=== PATIENT | female | born 1935 | race Caucasian/White ===

== ENCOUNTER 2019-05-13 18:43 | Inpatient (IN) ==
[2019-05-13 19:48] LABS: BASO# 0.04 X1000 (0.0-0.2); BASO% 0.5 % (0.0-0.8); EOS# 0.26 X1000 (0.0-0.7); EOS% 3.1 % (0.0-10.0); HEMATOCRIT 46.6 % (37.0-47.0); HEMOGLOBIN 15.1 g/dL (12.0-16.0); LYMPH# 2.33 X1000 (1.2-3.4); MCH 29.8 PG (27-31); MCHC 32.4 g/dL (33-37); MCV 91.9 FL (81-99); MONO# 1.11 X1000 (0.11-0.59); MONO% 13.3 % (1.7-9.3); MPV 11.6 FL (7.4-10.4); NEUT# 4.59 X1000 (1.4-6.5); NEUT% 55.1 % (42.2-75.2); PLT 221 X1000 (130-400); RBC 5.07 XMIL (4.2-5.4); RDW 14.5 % (11.5-14.5); WBC 8.33 X1000 (4.8-10.8)
--- NOTE | 2019-05-13 19:59 | Diag Imaging Result Doc PS360 ---
EXAM: CHEST-PORTABLE HISTORY: dyspnea TECHNIQUE: Single view COMPARISON: 04/12/2015 FINDINGS: There is a large hiatal hernia. The heart is mildly enlarged. Mild vascular distention. There are scattered granuloma. No pleural effusions identified. IMPRESSION: 1.Mild cardiomegaly with mild pulmonary edema 2.Large hiatal hernia Electronically signed by Roderick Trejo 05/13/2019 7:57 PM
[2019-05-13 20:09] LABS: URINE SOURCE CLEAN CATCH
[2019-05-13 20:15] LABS: AGAP 16; BUN 16 mg/dL (8-22); CALCIUM 9.7 mg/dL (8.8-10.2); CHLORIDE 101 mmol/L (98-107); COSMO 287; CREATININE 0.6 mg/dL (0.5-0.9); ESTIMATED GFR > 60; GLUCOSE 108 mg/dL (70-104); POTASSIUM 4.6 mmol/L (3.5-5.1); SODIUM 143 mmol/L (136-145); TCO2 26 mmol/L (25-35)
[2019-05-13 20:23] LABS: BILIRUBIN URINE NEGATIVE (NEGATIVE); BLOOD URINE NEGATIVE (NEGATIVE); COLOR YELLOW; GLUCOSE URINE NEGATIVE (NEGATIVE); KETONE URINE NEGATIVE (NEGATIVE); LEUKOCYTES URINE NEGATIVE (NEGATIVE); NITRITE URINE NEGATIVE (NEGATIVE); PROTEIN URINE NEGATIVE (NEGATIVE); SP GRAVITY URINE 1.015; TURBIDITY URINE CLEAR (CLEAR); UROBILINOGEN URINE 2 mg/dL (NORMAL)
[2019-05-13 20:24] LABS: UR EPITHELIAL CELLS <10 /HPF (<10); URINE BACTERIA NEGATIVE /HPF; URINE RBC <10 /HPF (<10); URINE WBC <10 /HPF (<10)
[2019-05-13] MEDS ORDERED: LASIX IV ONE (20:44)
--- NOTE | 2019-05-13 20:52 | EKG Report ---
Test Performed on : 05/13/2019 7:32:48 PM Test Reason : HIGH BP Blood Pressure : / mmHG Vent. Rate : 110 BPM Atrial Rate : 110 BPM P-R Int : 162 ms QRS Dur : 090 ms QT Int : 340 ms P-R-T Axes : 011 -48 064 degrees QTc Int : 460 ms Sinus tachycardia. with premature atrial complexes. Left axis deviation Anterior infarct , age undetermined Abnormal ECG When compared with ECG of 12-APR-2015 10:17, premature atrial complexes. are now present Anterior infarct is now present Unconfirmed Result
[2019-05-13] MEDS ORDERED: ZOFRAN IV PRN (23:16)
[2019-05-14] MEDS: LOVENOX SUBQ SCH ×2 (00:03→21:26)
[2019-05-14] MEDS: DUONEB (A & A) INH SCH ×4 (03:29→23:05)
--- NOTE | 2019-05-14 04:33 | HISTORY AND PHYSICAL ---
REASON FOR ADMISSION: Two months history of worsening shortness of breath. HISTORY OF PRESENT ILLNESS: Ms. Srivastava is an 84-year-old woman with past medical history of hypertension, hyperlipidemia, who comes in complaining of a 2 month history of progressive worsening shortness of breath. Six months ago, patient could walk from a house to her mailbox and back to her house before getting short of breath and it took her about less than a minute to overcome the shortness of breath. Over the last 2 months, she says she has been unable to make it to her mailbox and has to send people to get her mail. She stated that she came in today primarily because over the last 1 month she has been having increasing PND and orthopnea. She admits to having an occasional dry cough but no fever, no chills. She denies any leg swelling. She admits to having transient precordial chest pain lasting a few seconds. It is sharp and there are no specific aggravating or relieving factors. She also denies any upper respiratory symptoms. She denies any easy satiety or abdominal distention. No blood loss from any orifice. No change in her medications recently. REVIEW OF SYSTEMS: Only notable for occasional constipation. Otherwise, 12 system review was done and positive findings as per HPI. ALLERGIES TO: Aspirin, codeine, and Phenergan. MEDICATIONS: Takes amlodipine 2.5 mg daily, Celexa 10 mg daily, potassium chloride 10 mg daily, simvastatin 20 mg daily, Micardis 80 mg daily, Zanaflex 4 mg b.i.d. SURGICAL HISTORY: Includes kidney stone extraction, cataracts, joint replacement, hysterectomy, cholecystectomy. SOCIAL HISTORY: Lives alone. Does not smoke, drink, or use elicit drugs. FAMILY HISTORY: Positive for heart disease, but no diabetes in first-degree relatives. LABORATORY WORK: White count 8000. Hemoglobin and hematocrit 15 and 46, platelets 221,000 with no left shift. BUN is 16, creatinine 0.6. ProBNP is 355. Troponin is negative. Urinalysis is essentially benign. Chest film showed increased vascular markings, cardiomegaly and possible right lower lobe area of consolidation. EKG not available for review at this time. PHYSICAL EXAMINATION: VITAL SIGNS: Blood pressure is 125/80, heart rate 108, respiratory rate was 33, but now it is down to 20, temperature is 97.8. She is 92% O2 saturation on room air. GENERAL: She is an overweight elderly woman, not in acute distress. She is alert and oriented to person time normal mood and affect. HEAD: Is normocephalic, atraumatic. EYES: YANY. EOMI intact. Not pale. ENT EXAM: Shows moist oral mucosa. No oropharyngeal exudate. No cyanosis. NECK: Supple. Surprisingly, no JVD or hepatojugular reflux. No bruit or thyromegaly noted. CHEST: A few bibasilar crepitations with decreased entry in the right lower base. CARDIOVASCULAR: First and 2nd heart sounds heard. No gallops, rubs, regular. ABDOMEN: Protuberant, soft, nontender. No megaly. Bowel sounds hypoactive. RECTAL: Deferred at this time. EXTREMITIES: No edema, clubbing or peripheral cyanosis. Good distal pulse volumes which are regular and symmetrical. NEUROLOGIC: No gross focal deficits. SKIN: Intact. No breakdown, lesion or erythema. MUSCULOSKELETAL: Exam is grossly normal. ASSESSMENT: 1. Progressive dyspnea. Could be congestive heart failure and another pathology. 2. Hypertensive heart disease. 3. Hyperlipidemia. PLAN: Due to the fact that the patient has a mixed picture of congestive heart failure and another possible underlying cardiorespiratory pathology, I will order a CT scan of the thorax with contrast to rule out any coexisting pathology. It is also possible that the patient may have chronic aspiration causing a subclinical chronic aspiration pneumonitis based on her large hiatal hernia noted. We will treat patient with bronchodilators and diuretics and order an echo in the morning. Conservative blood pressure management will be instituted to avoid hypertension. Please follow-up chest CT thorax. cc: Greg Montanez MD
--- NOTE | 2019-05-14 06:52 | PROVIDER DOCUMENTATION ---
This chart was entered by Dominick Arce Scribe, acting as scribe for Olaf Guzman MD. HPI-General Adult - General Chief Complaint: B/P Problems Stated Complaint: HIGH BP Time Seen by Provider: 05/13/19 19:05 Source: patient Allergies/Adverse Reactions: Patient Allergies Allergy/AdvReac Type Severity Reaction Status Date / Time aspirin AdvReac Mild ABDOMINAL Verified 04/12/15 11:08 PAIN codeine [Codeine] AdvReac Mild ITCHING Verified 04/12/15 11:08 promethazine HCl * AdvReac Mild NAUSEA/VOMI Verified 04/12/15 11:08 [From Phenergan] TING Home Medications: Home Medication List Medication Instructions Recorded Confirmed Last Taken Type Potassium Chloride 10 meq PO DAILY 12/13/12 05/13/19 02/12/15 08:00 History Simvastatin 20 mg PO DAILY 12/13/12 05/13/19 02/12/15 20:00 History Tizanidine [Zanaflex] 4 mg PO BID 12/13/12 05/13/19 02/12/15 20:00 History Amlodipine Besylate 2.5 mg PO DAILY 05/13/19 05/13/19 Unknown History Citalopram Hydrobromide 10 mg PO DAILY 05/13/19 05/13/19 Unknown History [Citalopram HBr] Telmisartan 80 mg PO DAILY 05/13/19 05/13/19 Unknown History - History of Present Illness -Gen Adult Nature of Presenting Problems: Pt is a 84 y/o F presents to the ED stating her BP is high. She reports weakness, dizziness and SOB that has been happening for over a month. She says she seen her PCP Dr Bangura last week for the same things and he adjusted her BP meds. She reports she cant lay down flat and has pain between her shoulder blades. Location of Pain/Injury: reports: none Pain Radiation: reports: no radiation Severity: reports: moderate Onset/Duration: reports: gradual Timing: reports: getting worse Context/Activities at Onset: reports: none Associated Symptoms: reports: back/neck pain, dizziness, shortness of breath, weakness. denies: fever/chills, trouble walking Similar Symptoms Previously?: Yes Recently seen or treated by another doctor?: Yes (Dr Bangura 1 week ago) Review of Systems - Adult - REVIEW OF SYSTEMS - ADULT Constitutional: denies: chills, fever Eyes: reports: no symptoms reported Ears, Nose, Mouth & Throat: denies: throat pain Cardiovascular: denies: chest pain, edema, palpitations Respiratory: reports: shortness of breath. denies: cough, pleurisy, wheezing Gastrointestinal: denies: abdominal pain, nausea, vomiting Genitourinary: denies: dysuria, flank pain Musculoskeletal: reports: back pain. denies: neck pain Integumentary: reports: no symptoms reported Neurological: reports: dizziness/vertigo, other (weakness). denies: headache/migraines, seizure, slurred speech, syncope Psychiatric: denies: anxiety, anti-depressant use Endocrine: reports: no symptoms reported Hematologic/Lymphatic: reports: no symptoms reported Allergic/Immunologic: reports: no symptoms reported All Other Systems: Reviewed and Negative Past History - Adult - PAST MEDICAL HISTORY-ADULT Review of Records: reports: Old Records Reviewed, Nursing Assessment Review, Medications Reviewed Major Childhood Illnesses: reports: denies history Cardiovascular: reports: HTN, hyperlipidemia Gastrointestinal: reports: GERD (hiatal hernia), pancreatitis Genitourinary: reports: kidney stones Musculoskeletal: reports: arthritis Other Conditions: reports: cataract/glaucoma - PRIOR SURGERIES/PROCEDURES Surgical/Procedure History: reports: cholecystectomy, hysterectomy, joint replacement, other (cataract) - IMMUNIZATION STATUS Childhood Immunizations: See Nurse Assessment Flu Vaccine: See Nurse Assessment - SOCIAL HISTORY Smoking: non-smoker, quit greater than 1 year Substance Use: none/never Living Situation: family Physical Exam-General - PHYSICAL EXAM-ADULT Initial Vital Signs Reviewed: Yes - CONSTITUTIONAL General Appearance: appears well, alert, no apparent distress - EYES Eyes: PERRL/EOMI, pink conjunctivae - HEAD, EARS, NOSE, MOUTH & THROAT HENMT: moist mucous membranes, normal ENT inspection - NECK Neck: non-tender, full range of motion, supple, normal inspection - RESPIRATORY Respiratory: lungs clear, normal breath sounds, no pleuratic chest pain, no respiratory distress, no accessory muscle use - CARDIOVASCULAR Cardiovascular: normal peripheral pulses, regular rate, rhythm - GASTROINTESTINAL (ABDOMEN) Abdominal Exam: normal bowel sounds, non tender, soft - MUSCULOSKELETAL Back Exam: normal inspection, no CVA tenderness, no vertebral tenderness Extremity: normal range of motion, non-tender, normal gait, normal inspection - SKIN Integumentary: normal color, normal turgor, warm/dry - NEUROLOGIC Neurologic: grossly normal, no motor/sensory deficits - PSYCHIATRIC Psych/Mental Status: normal mood/affect, normal thought content, normal thought process, oriented x 3 Progress - PLAN OF CARE/RESULTS Progress/Plan/Lab Results: Vital Signs - 8 hr 05/13/19 18:45 Temperature 97.8 F Pulse Rate 114 H Respiratory Rate 24 Blood Pressure 104/74 O2 Sat by Pulse Oximetry 94 L Orders Category Date Time Status CHEST-PORTABLE [RAD] Stat Exams 05/13/19 19:19 Ordered BMP [BASIC METABOLIC PANEL] [CHEM] Stat Lab 05/13/19 19:18 Uncollected CBC WITH ELECTRONIC DIFF [HEME] Stat Lab 05/13/19 19:18 Uncollected PRO B-NATRIURETIC PEPTIDE Stat Lab 05/13/19 19:19 Uncollected TROPONIN T Stat Lab 05/13/19 19:19 Uncollected URINALYSIS W/POSS RFLX CULT [URINALYSIS] Stat Lab 05/13/19 19:20 Uncollected EKG [EKG] Stat Ther 05/13/19 18:46 Ordered Result Diagrams: 05/13/19 19:36 05/13/19 19:36 - EKG 1 Time of EKG reading by physician:: 19:38 EKG Read and Signed by:: Olaf Guzman EKG Interpretation (*Must complete 3 of following elements*): Abnormal Rate: 111 Rhythm: Sinus Tach with PAC's [place]: left Comments: anterior infarct, age undetermined - XRAY 1 XRAY Study: Chest Impression: Abnormal ( EXAM: CHEST-PORTABLE HISTORY: dyspnea TECHNIQUE: Single view COMPARISON: 04/12/2015 FINDINGS: There is a large hiatal hernia. The heart is mildly enlarged. Mild vascular distention. There are scattered granuloma. No pleural effusions identified. IMPRESSION: 1.Mild cardiomegaly with mild pulmonary edema 2.Large hiatal hernia Electronically signed by Roderick Trejo 05/13/2019 7:57 PM 05/13/191956 Interpreting Physician: Roderick Farmer MD Dictated Date/Time: 05/13/191955 cc: Olaf Guzman MD; Win Bangura MD) - CONSULTS/PCP/HOSPITALIST Notification #1 *Consult/PCP/Hospitalist*: Dr Montanez Time Discussed: 20:50 Reason/Comments: Admission Consult Disposition: Will see in ED Departure - Departure Date of Disposition Decision: 05/13/19 Time of Disposition Decision: 20:50 DIAGNOSIS: Pleural effusion DIAGNOSIS: (Ruled Out): SOB (shortness of breath) Disposition: ADMITTED INPATIENT 09 Certified Medical Emergency: Emergent Condition: Fair - Critical Care Note This patient required my direct & personal management of CC.: No Attestation - Physician/ LISA Attestation Patient care was provided by Advanced Practice Provider:: No The physician spent face to face time with patient:: Yes Advanced Practice Provider documentation review:: Supervising physician onsite and consulted in the evaluation and care of this patient. The physician did have a face to face encounter with the patient. This chart was documented by the indicated scribe, (Domiinck Arce Scribe) and accurately reflects the services I performed and decisions made by me, Olaf Guzman MD, as attested by the provider's signature.
--- NOTE | 2019-05-14 07:06 | Diag Imaging Result Doc PS360 ---
CT THORAX W/CONTRAST - 05/13/2019 INDICATION: Dyspnea COMPARISON: Chest x-ray 05/13/2019, abdomen CT 04/12/2015 FINDINGS: There is a very large hiatal/right diaphragmatic hernia extending up to the jovon. The transverse colon extends all the way to the jovon. This is stable from prior. There is some slight compressive atelectasis of the right lower lobe. Otherwise, no infiltrates. Heart and great vessels are normal. Bones are intact. IMPRESSION: Very large, old hiatal/right diaphragmatic hernia. No change from prior. This exam was performed using automated exposure control, adjustment of mA or kV according to patient size, and/or use of iterative reconstruction technique Electronically signed by Brent Cardoza 05/14/2019 7:04 AM
--- NOTE | 2019-05-14 07:27 | Diag Imaging Result Doc PS360 ---
EXAM: CHEST-2 VIEWS INDICATION: chf TECHNIQUE: 2 views COMPARISON: 05/13/2019 FINDINGS: There is a very large hiatal hernia is opacifying much of the right lower lung zone. This is similar to the previous study. There is associated right basilar compressive atelectasis. No new consolidation is identified. Cardiac silhouette is stable. IMPRESSION: Stable chest. Electronically signed by Maximo Moctezuma 05/14/2019 7:24 AM
[2019-05-14 08:14] LABS: BASO# 0.03 X1000 (0.0-0.2); BASO% 0.4 % (0.0-0.8); EOS# 0.23 X1000 (0.0-0.7); EOS% 3.3 % (0.0-10.0); HEMATOCRIT 45.3 % (37.0-47.0); HEMOGLOBIN 14.7 g/dL (12.0-16.0); LYMPH% 29.1 % (20.5-51.1); MCH 29.9 PG (27-31); MCHC 32.5 g/dL (33-37); MCV 92.3 FL (81-99); MONO% 13.1 % (1.7-9.3); MPV 11.6 FL (7.4-10.4); NEUT# 3.71 X1000 (1.4-6.5); NEUT% 54.1 % (42.2-75.2); PLT 198 X1000 (130-400); RBC 4.91 XMIL (4.2-5.4); RDW 14.7 % (11.5-14.5); WBC 6.87 X1000 (4.8-10.8)
[2019-05-14 08:36] LABS: AGAP 14; BUN 13 mg/dL (8-22); CALCIUM 9.8 mg/dL (8.8-10.2); CHLORIDE 103 mmol/L (98-107); COSMO 287; CREATININE 0.8 mg/dL (0.5-0.9); ESTIMATED GFR > 60; GLUCOSE 101 mg/dL (70-104); SODIUM 144 mmol/L (136-145); TCO2 27 mmol/L (25-35)
[2019-05-14] MEDS: KLOR-CON PO SCH (09:25)
[2019-05-14] MEDS: MICARDIS PO SCH (09:25)
[2019-05-14] MEDS: LASIX IV SCH ×2 (09:25→21:26)
--- NOTE | 2019-05-14 09:49 | PROGRESS NOTE ---
DATE: 05/14/2019 SUBJECTIVE: This patient is feeling better today. As per the patient, sometimes she needs to wake up at 3 a.m. because she is short of breath and when she goes to bed it takes time for her to be able to sleep because of the shortness of breath as well. In the other hand, she is getting tired when she goes to the mailbox and she needs to sit due to shortness of breath. She does have a really large hiatal hernia with on the right side but compared with before it seems to be stable. She is not having fever or chills. OBJECTIVE: Vital Signs: Temperature 97.7 degrees, pulse 81, respiratory rate 18, blood pressure 126/51, oxygen saturation 98 on 2 L of nasal cannula. HEENT: Head normocephalic, no trauma. PERRLA. Neck: Supple. No JVD. No masses. Central trachea. Chest: Decreased breath sounds at the right base. Some crepitus on the left base. Abdomen: Soft, nontender, nondistended. No hepatosplenomegaly. Extremities: Trace to 1+ edema. No clubbing. No cyanosis. Neurological: The patient is completely alert. She is oriented x3. No focal deficits. LABORATORY: WBC 6.8, hemoglobin 14.7, hematocrit 45.3, platelets 198,000. Sodium 144, potassium 4, chloride 103, bicarbonate 27, BUN 13, creatinine 0.8, glucose 101, calcium 9.8, TSH 1.3. ASSESSMENT AND PLAN: 1. Progressive dyspnea. For me this is likely related to congestive heart failure. CT of the chest showed a large right hiatal hernia, but it has been about the same compared with the previous images. She does have paroxysmal nocturnal dyspnea and orthopnea and she is getting short of breath with some physical activity, especially when she goes to the mailbox. I will wait for the echocardiogram. I will monitor for now. She is feeling much better after placing her on Lasix. 2. Hypertension, continue with same management. 3. Dyslipidemia. Aware. Continue with same treatment. 4. Large right hiatal hernia, no changes compared with previous studies. I do not believe this hernia can be repaired surgically because it is really large. 5. Mild fluid overload, likely due to congestive heart failure, but I will need to wait for the echocardiogram. cc: Luis Flynn MD
--- NOTE | 2019-05-14 14:47 | ECHO REPORT ---
ORDER DATE: 05/13/2019 INTERPRETING PHYSICIAN: Dr. Abhilash Sinha ECHOCARDIOGRAPHIC MEASUREMENTS: 1. Interventricular septum: 1.0 cm. 2. Posterior wall: 1.0 cm. 3. Diastolic diameter: 3.8 cm. 4. Systolic diameter 2.1. 5. Left atrium: 4.0 cm. 6. Aortic root: 3.4 cm. SUMMARY OF THE 2-DIMENSIONAL IMAGIN. Aortic valve leaflets were trileaflet, mildly sclerosed. 2. Tricuspid valve was normal. 3. Pulmonic valve was normal. 4. Ascending aorta appeared to be having calcification and reverberations were noted in the ascending aorta. This is likely to be artifactual, however would recommend a CT scan of the ascending aorta to evaluate and rule out any pathology. 5. Normal left ventricular cavity size. Hyperdynamic left ventricular systolic function. Estimated ejection fraction of 70%. There is diastolic dysfunction. 6. There is mild tricuspid regurgitation. Peak velocity across the tricuspid valve was 3 m/sec. 7. Pulmonary artery systolic pressure of 46 to 50 mmHg. 8. Peak velocity across the aortic valve less than 2 m/sec. There is no aortic stenosis, there is aortic sclerosis. There is no aortic regurgitation. 9. There is mild pulmonary regurgitation. 10. There is mild mitral regurgitation. 11. There is no pericardial effusion. cc: MD Boy Hampton MD
[2019-05-14] MEDS: VALIUM PO PRN (18:15)
[2019-05-14] MEDS: TYLENOL PO PRN (21:26)
[2019-05-15] MEDS: DUONEB (A & A) INH SCH ×4 (03:58→22:36)
--- NOTE | 2019-05-15 06:18 | Diag Imaging Result Doc PS360 ---
CHEST-PORTABLE - 05/15/2019 INDICATION: dyspnea COMPARISON: 05/14/2019 FINDINGS: Stable large hiatal hernia in the right lung base. The lungs are clear. Heart size is normal. No pneumothorax or pleural effusion. IMPRESSION: No acute disease. Electronically signed by Brent Cardoza 05/15/2019 6:16 AM
[2019-05-15 06:36] LABS: CALCIUM 9.9 mg/dL (8.8-10.2); CREATININE 0.9 mg/dL (0.5-0.9); POTASSIUM 4.6 mmol/L (3.5-5.1)
[2019-05-15] MEDS: KLOR-CON PO SCH (08:35)
[2019-05-15] MEDS: MICARDIS PO SCH (08:35)
[2019-05-15] MEDS: LASIX IV SCH ×2 (08:35→20:27)
--- NOTE | 2019-05-15 14:49 | PROGRESS NOTE ---
DATE: 05/15/2019 SUBJECTIVE: Patient reports breathing much better today. She denies any paroxysmal nocturnal dyspnea. OBJECTIVE: Vital Signs: Temperature 98.1, heart rate 98, respiratory rate 16, blood pressure 109/78. O2 saturation 97% on 2 L nasal cannula. General: This is an 84-year-old female lying in bed, in no acute distress. Cardiovascular: S1, S2 heard. No murmurs, gallops, or rubs. Regular rate and rhythm. Respiratory: Mild rhonchi in left base. The patient is not using any accessory muscles or having work of breathing. Abdomen: Soft, nontender to palpation. Bowel sounds present. No organomegaly. Extremities: No clubbing or cyanosis, but there is 1+ pitting edema in lower extremities. Neurological: Patient is completely alert and awake. The patient is oriented x3. LABORATORY DATA: Reviewed. ASSESSMENT AND PLAN: 1. Acute diastolic congestive heart failure. We will continue with Lasix 20 mg IV q.12 hours. I think that is the reason why this patient has been having shortness of breath. In any case, we will continue with the same management. We will transfer this patient to a regular room today. Will put a consult for Physical Therapy; will place patient on therapy. We will see how she does. 2. Hypertension. Blood pressure is under control. We will continue with the same management. 3. Hyperlipidemia. We will continue with home medications. 4. Large right hiatal hernia. Aware. We will continue to monitor. 5. Disposition. Will transfer this patient out to the [facility] today. cc: Galileo Chery MD
[2019-05-15] MEDS: VALIUM PO PRN (20:27)
[2019-05-15] MEDS: LOVENOX SUBQ SCH (20:27)
[2019-05-15] MEDS: TYLENOL PO PRN (21:40)
[2019-05-16] MEDS: DUONEB (A & A) INH SCH ×2 (03:18→10:20)
[2019-05-16 07:30] LABS: AGAP 12; ALBUMIN 3.9 g/dL (3.5-5.0); BUN 20 mg/dL (8-22); CHLORIDE 98 mmol/L (98-107); COSMO 281; CREATININE 0.7 mg/dL (0.5-0.9); ESTIMATED GFR > 60; GLUCOSE 87 mg/dL (70-104); PHOSPHORUS 3.9 mg/dL (2.7-4.5); POTASSIUM 4.5 mmol/L (3.5-5.1); SODIUM 140 mmol/L (136-145); TCO2 30 mmol/L (25-35)
[2019-05-16] MEDS: KLOR-CON PO SCH (08:29)
[2019-05-16] MEDS: VALIUM PO PRN (08:30)
[2019-05-16] MEDS: LASIX IV SCH (08:30)
[2019-05-16] MEDS: TYLENOL PO PRN (08:31)
[2019-05-16] MEDS: MICARDIS PO SCH (08:32)
[2019-05-16 12:00] VITALS: BP 107/50
[2019-05-16] MEDS ORDERED: PNEUMOVAX 23 IM ONE (12:45)
--- NOTE | 2019-05-17 12:38 | DISCHARGE SUMMARY ---
ADMISSION DATE: 05/13/2019 DISCHARGE DATE: 05/16/2019 DISCHARGE DIAGNOSES: 1. Acute diastolic congestive heart failure. 2. Hypertensive heart disease. 3. Hyperlipidemia. PROCEDURES: 1. Chest x-ray done on admission showed mild cardiomegaly with mild pulmonary edema and large hiatal hernia. 2. CT of the chest showed very large right diaphragmatic hernia, but no change from prior. 3. Portable chest x-ray showed stable large hiatal hernia in the right lung base. No pneumothorax or pleural effusion. ASSESSMENT AND PLAN: This is an 84-year-old female with past medical history of hypertension and hyperlipidemia, who comes to the emergency department complaining of 2 month history of progressive shortness of breath so she was admitted to the hospital. She was found to have pulmonary edema so she was started on Lasix. Echocardiogram revealed diastolic heart failure so we continued with Lasix, and she continues to feel better. Today, patient reports feeling okay. She is not requiring any oxygen supplementation so she is going to be discharged in stable condition with follow-up with her primary care doctor in a week. DISCHARGE PHYSICAL EXAMINATION: Vital Signs: Temperature 98.1 degrees, heart rate 100, respiratory rate 16, blood pressure 107/50. O2 saturation 94% on room air. General: This is an 84-year-old female lying in bed in no acute distress. Cardiovascular: S1 and S2 heard. No murmurs, gallops, or rubs. Regular rate and rhythm. Respiratory: Clear bilaterally to auscultation. No work of breathing or using accessory muscles. Abdomen: Soft. Nontender to palpation. Bowel sounds present. No organomegaly. Extremities: No clubbing, cyanosis, or edema. Peripheral pulses present in both legs. Neurological: The patient is alert and oriented x3. Moves all 4 extremities. DISCHARGE DISPOSITION: Home to self-care. DISCHARGE MEDICATIONS: 1. Lasix 20 mg 1 tablet p.o. daily. 2. Tizanidine 4 mg 1 tablet p.o. daily. 3. Potassium chloride 10 mEq 1 tablet p.o. daily. 4. Simvastatin 20 mg 1 tablet p.o. daily. 5. Amlodipine 2.5 mg 1 tablet p.o. daily. 6. Diazepam 5 mg 1 tablet p.o. 3 times per day as needed. 7. Telmisartan 40 mg 1 tablet p.o. daily. TIME SPENT: Time discharging this patient 34 minutes. cc: Galileo Chery MD
== END 2019-05-16 14:26 | disposition home health service (06) | DRG 291 ==
LOC: ED 18:43 → EDIPHOLD 21:17 → SUATTDRO 21:17 → 2N 05-14 07:45 → 4N 05-15 17:57
PROVIDERS: ATTEND Internal Medicine